=== PATIENT | male | born 1965 | race Two or more races ===

== ENCOUNTER 2025-01-06 19:38 | Emergency (ER) | payer SELFPAY ==
[~2025-01-06] VITALS: Ht 167.6 cm; Wt 92.6 kg
--- NOTE | 2025-01-06 19:58 | ED.PDOC ---
HPI Comments 59-year-old male who came to ER due to chest pains. Patient has history of GERD. Has been having epigastric abdominal pain for the past week, has been taking his medications for GERD, but abdominal pain persisted radiating to his left chest area. Denies any nausea vomiting or shortness a breath. Chief Complaint: Chest Pain Time Seen by MD: 19:57 Reviewed Notes: Nurses Notes Allergies: Coded Allergies: NO KNOWN ALLERGIES (Unverified , 01/06/25) Home Meds Active Scripts Famotidine (PEPCID TABLET) 20 Mg Tb, 1 TAB PO BID PRN, #60 TAB 5 Refills Prov:DONTRELL HEARN MD 01/06/25 Information Source: Patient Mode of Arrival: Ambulatory Timing: Days Duration: Intermittent Location: Chest (L) Radiation: Abdomen Past Medical History PAST MEDICAL HISTORY: GERD Surgical History: Denies all surgeries Family History Family History: Reviewed,noncontributory to illness Social History Smoker: Non-Smoker Alcohol: Denies ETOH Use Drugs: Denies Drug Use Lives In: Home Constitutional: denies: chills, diaphoresis, fatigue, fever, malaise, sweats, weakness, others EENTM: denies: blurred vision, double vision, ear bleeding, ear discharge, ear drainage, ear pain, ear ringing, eye pain, eye redness, hearing loss, mouth pain, mouth swelling, nasal discharge, nose bleeding, nose congestion, nose pain, photophobia, tearing, throat pain, throat swelling, voice changes, others Respiratory: denies: cough, hemoptysis, orthopnea, SOB at rest, shortness of breath, SOB with excertion, stridor, wheezing, others Cardiovascular: reports: chest pain; denies: dizzy spells, diaphoresis, Dyspnea on exertion, edema, irregular heart beat, left arm pain, lightheadedness, palpitations, PND, syncope, others Gastrointestinal: reports: abdominal pain; denies: abdomen distended, blood streaked bowels, constipated, diarrhea, dysphagia, difficulty swallowing, hematemesis, melena, nausea, poor appetite, poor fluid intake, rectal bleeding, rectal pain, vomiting, others Genitourinary: denies: burning, dysuria, flank pain, frequency, hematuria, incontinence, penile discharge, penile sore, pain, testicle pain, testicle swelling, urgency, others Neurological: denies: dizziness, fainting, headache, left sided numbness, left sided weakness, numbness, paresthesia, pre-existing deficit, right sided numbness, right sided weakness, seizure, speech problems, tingling, tremors, weakness, others Musculoskeletal: denies: back pain, gout, joint pain, joint swelling, muscle pain, muscle stiffness, neck pain, others Integumetry: denies: bruises, change in color, change in hair/nails, dryness, laceration, lesions, lumps, rash, wounds, others Allergic/Immunocompromised: denies: Difficulty Healing, Frequent Infections, Hives, Itching, others Hematologic/Lymphatic: denies: anemia, blood clots, easy bleeding, easy bruising, swollen glands, others Endocrine: denies: excessive hunger, excessive sweating, excessive thirst, excessive urination, flushing, intolerance to cold, intolerance to heat, unexplained weight gain, unexplained weight loss, others Psychiatric: denies: anxiety, bipolar disorder, depression, hopeless, panic disorder, schizophrenia, sleepless, suicidal, others Physical Exam General Appearance: No Apparent Distress, Normal HEENT: Normal ENT Inspection, Pharynx Normal, TMs Normal Neck: Full Range of Motion, Non-Tender, Normal, Normal Inspection Respiratory: Chest Non-Tender, Lungs Clear, No Accessory Muscle Use, No Respiratory Distress, Normal Breath Sounds Cardiovascular: No Edema, No JVD, No Murmur, No Gallop, Normal Peripheral Pulses, Regular Rate/Rhythm Breast Exam: Deferred Gastrointestinal: No Organomegaly, Non Tender, No Pulsatile Mass, Normal Bowel Sounds, Soft Genitalia: Deferred Pelvic: Deferred Rectal: Deferred Extremities: No calf tenderness, Normal capillary refill, Normal inspection, N ormal range of motion, Non-tender, No pedal edema Musculoskeletal : Apperance: Normal Neurologic: Alert, interior design principal II-XII nml as Tested, No Motor Deficits, Normal Affect, Normal Mood, No Sensory Deficits Cerebellar Function: Normal Reflexes: Normal Skin: Dry, Normal Color, Warm Lymphatic: No Adenopathy EKG EKG : Pulse Rate (adult): 73 Cardiac Rhythm: NSR Was a procedure done? Was a procedure done?: No CP Differential Dx Differential Diagnosis: Angina, Anxiety / Panic Attack Differential Diagnosis: Angina, Chest Wall Pain, Costochondritis, Esophageal reflux/spasm, Gastritis, Myocardial Infarction X-Ray, Labs, Meds, VS Vital Signs Date Time Temp Pulse Resp B/P (MAP) Pulse Ox O2 Delivery O2 Flow Rate FiO2 01/06/25 23:10 97.8 68 17 151/97 (115) 96 97.8 01/06/25 20:20 71 16 98 Room Air 01/06/25 20:20 98.0 71 16 159/95 (116) 98 98.0 01/06/25 20:00 73 01/06/25 19:58 73 01/06/25 19:42 98.5 82 18 140/88 99 98.5 Lab Test 01/06/25 20:59 01/06/25 20:14 01/06/25 19:59 Range/Units Troponin I High Sensitivity < 3 L < 3 L </=54 ng/L Urine Color Colorless Yellow Urine Clarity Clear Clear Urine pH 5.5 5.0-9.0 Urine Specific [place] 1.007 1.001-1.035 Urine Protein Negative Negative Urine Ketones Negative Negative Urine Blood Negative Negative /uL Urine Nitrite Negative Negative Urine Bilirubin Negative Negative Urine Urobilinogen Normal Negative mg/dL Urine Leukocyte Esterase Negative Negative /uL Urine RBC <1 0 - 3 /hpf Urine Microscopic WBC < 1 0-3 /HPF Urine Squamous Epithelial Cells Few <5 /hpf Urine Bacteria None seen None Seen /hpf Urine Glucose Normal Normal mg/dL White Blood Count 6.9 4.4-10.8 10^3/uL Red Blood Count 4.97 4.5-5.90 10^6/uL Hemoglobin 15.9 13.5-17.5 g/dL Hematocrit 43.8 41.0-53.0 % Mean Corpuscular Volume 88.2 80.0-100.0 fL Mean Corpuscular Hemoglobin 31.9 28.0-32.0 pg Mean Corpuscular Hemoglobin Concent 36.2 H 32.0-36.0 g/dL Red Cell Distribution Width 13.4 11.8-14.3 % Platelet Count 249 140-450 10^3/uL Mean Platelet Volume 7.0 6.9-10.8 fL Neutrophils (%) (Auto) 47.1 37.0-80.0 % Lymphocytes (%) (Auto) 38.6 10.0-50.0 % Monocytes (%) (Auto) 12.6 H 0.0-12.0 % Eosinophils (%) (Auto) 1.0 0.0-7.0 % Basophils (%) (Auto) 0.7 0.0-2.0 % Neutrophils # (Auto) 3.3 1.6-8.6 10 ^3/uL Lymphocytes # (Auto) 2.7 0.4-5.4 10 ^3/uL Monocytes # (Auto) 0.9 0-1.3 10 ^3/uL Eosinophils # (Auto) 0.1 0-0.8 10 ^3/uL Basophils # (Auto) 0 0-0.2 10 ^3/uL Nucleated Red Blood Cells 0.0 % Sodium Level 138 136-145 mmol/L Potassium Level 4.1 3.5-5.1 mmol/L Chloride Level 104 98-107 mmol/L Carbon Dioxide Level 24 20-31 mmol/L Anion Gap 10 5-15 Blood Urea Nitrogen 15 9-23 mg/dL Creatinine 0.86 0.700-1.30 mg/dL Glomerular Filtration Rate Calc 101 >90 mL/min BUN/Creatinine Ratio 17.4 10.0-20.0 Serum Glucose 130 H 74-106 mg/dL Calcium Level 9.3 8.7-10.4 mg/dL Total Bilirubin 0.5 0.2-1.0 mg/dL Aspartate Amino Transferase (AST) 20 13-40 U/L Alanine Aminotransferase (ALT) 26 7-40 U/L Alkaline Phosphatase 67 46-116 U/L Total Protein 6.9 5.7-8.2 g/dL Albumin 4.7 3.2-4.8 g/dL Lipase 36 12-53 U/L Current Medications Medications (Trade) Dose Ordered Sig/Jerome Route Start Time Stop Time Status Last Admin Ondansetron HCl (Zofran Po) 4 mg ONCE ONCE PO 01/06/25 20:00 01/06/25 20:01 DC 01/06/25 20:17 Famotidine (Pepcid Tablet) 40 mg ONCE ONCE PO 01/06/25 20:00 01/06/25 20:01 DC 01/06/25 20:18 Al Hydrox/Mg Hydrox/Simethicone (Maalox Plus) 30 ml ONCE ONCE PO 01/06/25 20:00 01/06/25 20:01 DC 01/06/25 20:17 EXAM: XY CHEST PORTABLE CLINICAL HISTORY: chest pain TECHNIQUE: Single AP view of the chest WID: COMPARISON: None FINDINGS: Lines and tubes: None Chest: The heart size and pulmonary vasculature is within normal limits. No pleural effusion, pneumothorax, or consolidation. The osseous structures are grossly intact. IMPRESSION: No acute cardiopulmonary abnormality. Time of 1ST Reevaluation: 19:52 Reevaluation 1ST: Unchanged Patient Education/Counseling: Diagnosis, Treatment Family Education/Counseling: No Family Present SEPSIS Sepsis Screen Date sepsis recognized/suspect: Jan 06, 2025 Time Sepsis recognized/suspect: 1941 Recent Procedure: No On Antibiotic Therapy: No Respiratory Rate >20: No Heart Rate >90: No Temp<36 C (96.8 F) or >38.3 C: No SBP <90 or MAP <65 mmHG: No New Acute Mental Status Change: No Is the patient on CPAP, BIPAP,: No Physician Orders Chest Portable (01/06/25 19:50) Electrocardigram (01/06/25 19:50) Vital Signs Date Time Temp Pulse Resp B/P (MAP) Pulse Ox O2 Delivery O2 Flow Rate FiO2 01/06/25 23:10 97.8 68 17 151/97 (115) 96 97.8 01/06/25 20:20 71 16 98 Room Air 01/06/25 20:20 98.0 71 16 159/95 (116) 98 98.0 01/06/25 20:00 73 01/06/25 19:58 73 01/06/25 19:42 98.5 82 18 140/88 99 98.5 Laboratory Tests Test 01/06/25 19:59 White Blood Count 6.9 10^3/uL (4.4-10.8) Medications Medications Dose Ordered Sig/Jerome Route Start Time Stop Time Status Last Admin Dose Admin Al Hydrox/Mg Hydrox/Simethicone 30 ml ONCE ONCE PO 01/06/25 20:00 01/06/25 20:01 DC 01/06/25 20:17 Famotidine 40 mg ONCE ONCE PO 01/06/25 20:00 01/06/25 20:01 DC 01/06/25 20:18 Ondansetron HCl 4 mg ONCE ONCE PO 01/06/25 20:00 8/16/25 20:01 DC 01/06/25 20:17 Departure 1 Departure Time of Disposition: 21:40 Impression: Primary Impression: Atypical chest pain Disposition: HOME / SELF CARE / HOMELESS Condition: Stable e-Prescriptions Famotidine (PEPCID TABLET) 20 Mg Tb 1 TAB PO BID PRN, #60 TAB 5 Refills Prov: DONTRELL HEARN MD 01/06/25 Discharged With: Self Critical Care Note Critical Care Time?: No Stability Stability form required: No Heart Score Heart Score: Heart Score Response (Comments) Value History Slightly Suspicious 0 EKG Normal 0 Age 45-64 1 Risk Factors 1 or 2 risk factors 1 Troponin Normal limit 0 Total 2 I personally scribed for DONTRELL HEARN MD ([email or web address]) on 01/06/25 at 19:58. Electronically submitted by Stalin Guerra ([facility]). I personally scribed for DONTRELL HEARN MD ([email or web address]) on 01/06/25 at 21:39. El ectronically submitted by Stalin Guerra ([facility]). DONTRELL HEARN MD Jan 06, 2025 19:58
[2025-01-06 20:15] LABS: Hematocrit 43.8 % (41.0-53.0); Hemoglobin 15.9 g/dL (13.5-17.5); Mean Corpuscular Hemoglobin 31.9 pg (28.0-32.0); Mean Corpuscular Volume 88.2 fL (80.0-100.0); Nucleated Red Blood Cells % 0.0 %
[2025-01-06] MEDS: ONDANSETRON ODT 4 MG TAB PO ONE (20:17)
[2025-01-06] MEDS: MAALOX PLUS or MAALOX 30 ML PO ONE (20:17)
[2025-01-06] MEDS: FAMOTIDINE 20 MG TAB PO ONE (20:18)
[2025-01-06 20:28] LABS: Alanine Aminotransferase 26 U/L (7-40); Alkaline Phosphatase 67 U/L (46-116); Anion Gap 10 (5-15); Calcium 9.3 mg/dL (8.7-10.4); Carbon Dioxide 24 mmol/L (20-31); Chloride 104 mmol/L (98-107); Lipase 36 U/L (12-53); Potassium 4.1 mmol/L (3.5-5.1); Sodium 138 mmol/L (136-145); Total Protein 6.9 g/dL (5.7-8.2)
[2025-01-06 20:29] LABS: Albumin 4.7 g/dL (3.2-4.8); BUN/Creatinine Ratio 17.4 (10.0-20.0); Bilirubin, Total 0.5 mg/dL (0.2-1.0); Blood Urea Nitrogen 15 mg/dL (9-23)
[2025-01-06 20:30] LABS: Glucose 130 mg/dL (74-106)
--- NOTE | 2025-01-06 21:12 | DVH ---
EXAM: XY CHEST PORTABLE CLINICAL HISTORY: chest pain TECHNIQUE: Single AP view of the chest WID: COMPARISON: None FINDINGS: Lines and tubes: None Chest: The heart size and pulmonary vasculature is within normal limits. No pleural effusion, pneumothorax, or consolidation. The osseous structures are grossly intact. IMPRESSION: No acute cardiopulmonary abnormality.
[2025-01-06 21:26] LABS: Urine Protein, UAD Negative (Negative)
[2025-01-06] MEDS ORDERED: FAMO20TA10 PO (22:43)
[2025-01-06 23:10] VITALS: BP 151/97; PULSE 68; RESP 17; TEMP 97.8; O2SAT 96
--- NOTE | 2025-01-10 14:49 | ECG ---
[facility] [place] Test Date: 2025-01-06 Test Time: 19:55:34 Pat Name: FRANC EGAN Department: ED Room: Gender: M [employer]: : 1965 Requested By: DONTRELL HEARN Order Number: [id number] Reading MD: Ravinder Delgadillo Measurements Intervals [place] Rate: 73 P: 32 [place]: 159 QRS: 56 QRSD: 87 T: 62 QT: 375 QTc: 414 Interpretive Statements Sinus rhythm Low voltage, precordial leads ST elevation, consider inferior injury Electronically Signed On 01-10-2025 22:24:35 PDT by Ravinder Delgadillo Please click the below link to view image of tracing.
== END 2025-01-06 23:11 | disposition home or self-care (01) ==
LOC: ER 19:38
DX: R07.89 Other chest pain (principal); K21.9 Gastro-esophageal reflux disease without esophagitis; Z79.899 Other long term (current) drug therapy
CPT/HCPCS: 36415; 71045; 80053; 81001; 83690; 84484; 85025; 93005; 99285; Q0162